=== PATIENT | female | born 1990 | race Two or more races ===

== ENCOUNTER 2019-10-14 14:51 | Emergency (ER) | payer BC ==
[~2019-10-14] VITALS: Ht 160 cm; Wt 74.8 kg
--- NOTE | 2019-10-14 15:00 | NUR ---
patient came in to the er c/o right hand dogbite. On room air, breathing evenly and unlabored. Kept comfortable, will continue to monitor accordingly.
[2019-10-14] MEDS ORDERED: BACI/NEOM/POLY B OINT PKT 1 UDPKT PACKET ONE (15:13)
[2019-10-14] MEDS ORDERED: TDAP [DIPH/PERTUSSIS/TET] 0.5 ML VIAL IM ONE (15:13)
[2019-10-14] MEDS ORDERED: IBUPROFEN 600 MG TABLET PO ONE (15:13)
[2019-10-14] MEDS: TDAP [DIPH/PERTUSSIS/TET] 0.5 ML VIAL IM ONE (15:20)
[2019-10-14] MEDS: IBUPROFEN 600 MG TABLET PO ONE (15:22)
[2019-10-14] MEDS: BACITRACIN ZINC OINT PACKET 1 EA PACKET TP ONE (15:22)
[2019-10-14 15:59] VITALS: BP 121/71
--- NOTE | 2019-10-14 16:00 | NUR ---
Patient discharged to home in stable condition. Written and verbal after care instructions given. Patient verbalizes understanding of instruction.
== END 2019-10-14 15:59 | disposition home or self-care (01) ==
LOC: ER 14:54
DX: S61.431A Puncture wound without foreign body of right hand, initial encounter (principal); M79.641 Pain in right hand; W54.0XXA Bitten by dog, initial encounter; Y93.89 Activity, other specified; Y92.89 Other specified places as the place of occurrence of the external cause; Y99.8 Other external cause status
CPT/HCPCS: 73130-TC; 90715